=== PATIENT | male | born 1985 | race Caucasian/White ===

== ENCOUNTER 2017-01-29 10:34 | Outpatient (CLI) | payer MEDICAID | END 2017-01-29 10:35 | disposition critical access hospital (66) | DX: R25.1 Tremor, unspecified (principal); R44.3 Hallucinations, unspecified | CPT/HCPCS: A0425; A0427 ==

== ENCOUNTER 2017-01-29 10:52 | Emergency (ER) | payer MEDICAID ==
[2017-01-29] MEDS ORDERED: LORazepam 2 MG/ML SYRINGE IVP STA (11:04)
[2017-01-29] MEDS ORDERED: SODIUM CHLORIDE 0.9% 1,000 ML IV ONE ×2 (11:04→12:33)
[2017-01-29] MEDS ORDERED: ONDANSETRON 4 MG/2 ML VIAL IVP STA (11:17)
[2017-01-29] MEDS ORDERED: LORazepam 2 MG/ML SYRINGE ONE (11:17)
[2017-01-29] MEDS ORDERED: ONDANSETRON 4 MG/2 ML VIAL ONE (11:21)
== END 2017-01-29 16:15 | disposition home or self-care (01) ==
DX: F10.230 Alcohol dependence with withdrawal, uncomplicated (principal); Z59.0 Homelessness; F17.200 Nicotine dependence, unspecified, uncomplicated; Z91.5 Personal history of self-harm
CPT/HCPCS: 36415; 80053; 80306; 80320; 81003; 83690; 85025; 96361; 96374; 96375; 99284; J2060